=== PATIENT | male | born 1965 | race Caucasian/White ===

== ENCOUNTER 2018-01-16 12:15 | Day surgery (SDC) | payer OTHER, SELFPAY ==
[2018-01-16] VITALS (7 sets, daily range): BP systolic 93–113; BP diastolic 53–67; PULSE 53–66; RESP 12–18; TEMP 36.4–36.7; O2SAT 94–100; BMI 24.7
--- NOTE | 2018-01-16 12:36 | PM.HP.1 ---
History of Present Illness Date Patient Seen: 01/16/18 Chief complaint: [id number] Narrative: 52-year-old male who I had initially seen 12/11/2017 due to weight loss and family history of colon cancer and stomach cancer. Please refer to that office note for details. The patient is currently on a gluten free diet no evidence of GI bleeding. Review of Systems Review of Systems All systems reviewed & are unremarkable except as noted in HPI and below Exam Narrative Exam Narrative: General: Patient is well developed, not in apparent distress Cardiovascular: Regular rate and rhythm, no murmurs, rubs, or gallops; no evidence of edema; no palpable abdominal aortic aneurysm Gastrointestinal: Normoactive bowel sounds, soft, nontender, nondistended, no rebound tenderness, no hepatosplenomegaly, no evidence of hernia Assessment & Plan Plan: Assessment/Plan Narrative: 52-year-old male with a family history of GI cancer who was sent to our office for further evaluation of weight loss. He will undergo a upper endoscopy and screening colonoscopy. Regarding the procedure(s), the risks and potential complications, benefits, and alternatives (including not doing the procedure) were discussed with the patient. The risks include but are not limited to bleeding, infection, perforation which may require surgical intervention, missed lesions, and adverse reactions to sedative medicines. After a question and answer period, the patient agreed to proceed with the procedure(s) and gives informed consent.
[2018-01-16] MEDS: SODIUM CHLORIDE 0.9% 1,000 ML 70 ML IV (12:43)
--- NOTE | 2018-01-16 12:53 | SUR.PREOP ---
Patient resting in bed with at bedside. Denies complaints at this time. Call light within reach, bed locked and in low position.
--- NOTE | 2018-01-16 13:04 | P.OP.ENDO_ITS ---
Operative Date/Time/Diagnoses Date of procedure: 01/16/18 Procedure Notes Procedure in detail: Surgeon: Link Rojas MD Procedure: Esophagogastroduodenoscopy and colonoscopy Preoperative diagnosis: Weight loss, family history of gastrointestinal cancer Postoperative diagnosis: LA grade A reflux esophagitis, hiatal hernia, grade 1 internal hemorrhoids otherwise normal colonoscopy Medications: Cetacaine spray; conscious sedation using 10 mg IV of Midazolam ( EGD); 10 mg IV Midazolam (total for both procedures) Preanesthesia Assessment An H and P was performed/updated and the Px?s ASA class is 1. The procedure was discussed in detail with the patient. The potential risks and complications including infection, bleeding, missed lesions, perforation, need for surgery in case of perforation, prolonged hospital stay, and were explained. A brief question and answer period was allotted and once all questions were answered, informed consent was obtained. The patient was brought back to the procedure room and placed on standard monitoring. The patient?s vital signs were monitored continuously throughout the entire procedure. Prior to starting, a timeout was performed to confirm the patient?s identity, allergies, medications, and procedure. Procedure in detail The patient was placed in left lateral decubitus position and a bite block was inserted. The tip of the upper endoscope was placed into the mouth and advanced without difficulty under direct visualization into the esophagus. Esophagus: LA grade A reflux esophagitis at GE junction; otherwise normal esophagus Stomach: Small hiatal hernia otherwise normal stomach Duodenum: Normal After the upper endoscopy, preparations were made for the colonoscopy. Once adequate sedation was obtained a CAT was performed. The digital rectal examination did not reveal any palpable lesions. The tip of the colonoscope was placed in the anal canal and advanced without difficulty all the way to the cecum which was identified by the appendiceal orifice and the ileocecal valve. The terminal ileum was intubated to a distance of 10 cm from the ileocecal valve and the mucosa appeared normal. The colonoscope was brought back to the cecum and careful examination of all thomas of the colon was performed with irrigation of any residual stool. There is no evidence of mucosal abnormality or polyps throughout the entire colon. Retroflexion was performed in the rectum which revealed grade 1 internal hemorrhoids. The patient tolerated the procedure well and will be brought back to the recovery area to be discharged once criteria are met. The prep was judged to be good/excellent and adequate to identify polyps less than 5 mm. The withdrawal time was 8 min. The total physician intraservice time was 28 min. Complications There were no complications and estimated blood loss was zero. Recommendations Resume previous diet Anti-reflux measures Ranitidine 150 mg daily for the next month to heal esophagitis then can discontinue Repeat colonoscopy for colon cancer screening in 10 years Follow-up at our office on an as-needed basis or if with recurrent symptoms An emergency contact number was given to the patient for any complications related to the procedure
[2018-01-16] MEDS: TETRACAINE/BENZOCAINE/BUTAMBEN (CETACAINE) BOTTLE 1 SPRAY TOP (13:09)
--- NOTE | 2018-01-16 13:35 | PM.DS.1 ---
History of Present Illness Chief complaint: [id number] Narrative: 52-year-old male who I had initially seen 12/11/2017 due to weight loss and family history of colon cancer and stomach cancer. Please refer to that office note for details. The patient is currently on a gluten free diet no evidence of GI bleeding. Discharge Providers Primary care physician: Rd Dillon MD Discharge provider: Link Rojas MD Exam Vital Signs (past 8 hours): - 01/16/18 12:34 Temperature 97.6 F Pulse Rate 56 L Respiratory Rate 16 Blood Pressure 113/65 Pulse Oximetry 100 Oxygen Delivery Method Room Air Narrative Exam Narrative: General: Patient is well developed, not in apparent distress Cardiovascular: Regular rate and rhythm, no murmurs, rubs, or gallops; no evidence of edema; no palpable abdominal aortic aneurysm Gastrointestinal: Normoactive bowel sounds, soft, nontender, nondistended, no rebound tenderness, no hepatosplenomegaly, no evidence of hernia Discharge Plan Discharge Plan Patient Disposition: Home Discharge Med Rec/Prescriptions Discharge Orders: Discharge (Order); Ordered 01/16/18 Ordered By: Link Rojas Provider Discharge Instructions Diet: Diet as Tolerated Visit Report/Discharge Packet Stand Alone Forms: Surgery Discharge Discharge Data Primary Care Provider: Rd Dillon V Attending Provider: Link Rojas
[2018-01-16] MEDS: MIDAZOLAM 5 MG/5 ML VIAL IV (13:37)
== END 2018-01-16 14:32 | disposition home or self-care (01) ==
PROVIDERS: PCP Internal Medicine; Visit Provider Internal Medicine Gastroenterology
PROC: 0DJ08ZZ Inspection of Upper Intestinal Tract, Via Natural or Artificial Opening Endoscopic (ICD-10-PCS; CPT 43235; principal; 2018-01-16 13:00)
PROC: 0DJD8ZZ Inspection of Lower Intestinal Tract, Via Natural or Artificial Opening Endoscopic (ICD-10-PCS; CPT 45378; 2018-01-16 13:00)
DX: K21.0 Gastro-esophageal reflux disease with esophagitis (principal); Z80.0 Family history of malignant neoplasm of digestive organs; R63.4 Abnormal weight loss; K44.9 Diaphragmatic hernia without obstruction or gangrene; K64.0 First degree hemorrhoids
CPT/HCPCS: 43235; 45378; J2250

== ENCOUNTER → 2020-08-12 08:52 | Outpatient (CLI) | payer OTHER, SELFPAY ==
[2020-08-12] MEDS: COVID-19 VACC #1, MRNA(MOD) 100 MCG/0.5 ML VIAL IM (09:00)
== END ==
PROVIDERS: PCP Internal Medicine; Visit Provider Internal Medicine
DX: Z23 Encounter for immunization (principal)
CPT/HCPCS: 0011A; 91301

== ENCOUNTER → 2020-09-09 08:48 | Outpatient (CLI) | payer OTHER, SELFPAY ==
[2020-09-09] MEDS: COVID-19 VACC #2, MRNA(MOD) 100 MCG/0.5 ML VIAL IM (09:09)
== END ==
PROVIDERS: PCP Internal Medicine; Visit Provider Internal Medicine
DX: Z23 Encounter for immunization (principal)
CPT/HCPCS: 0012A; 91301

== ENCOUNTER → 2022-01-31 08:03 | Outpatient (CLI) | payer OTHER, SELFPAY ==
[2022-01-31 08:51] LABS: Hematocrit 43.2 % (41-53); Hemoglobin 14.9 g/dL (13.5-17.5); Mean Corpuscular HGB Conc 34.5 % (30-36); Mean Corpuscular Hemoglobin 32.1 PG (26-34); Mean Corpuscular Volume 93.1 fL (80-100); Platelet Count 154 X10^3/uL (150-400); Red Blood Cell Count 4.64 X10^6/uL (4.5-5.9); Red Cell Distribution Width 13.4 % (11.6-14.8)
[2022-01-31 09:33] LABS: Alanine Aminotransferase 28 IU/L (<50); Albumin 4.2 g/dL (3.5-5.0); Albumin Globulin Ratio 1.4 (1.0-2.8); Alkaline Phosphatase 73 U/L (38-126); Aspartate Aminotransferase 28 IU/L (17-59); BUN Creatinine Ratio 17.8 (6-22); Bilirubin Total 1.5 mg/dL (0.2-1.3); Blood Urea Nitrogen 18 mg/dL (9-20); Calcium 9.2 mg/dL (8.4-10.2); Carbon Dioxide 27 mmol/L (22-32); Chloride 103 mmol/L (98-107); Cholesterol 138 mg/dL (140-199); Estimated Glomerular Filt Rate > 60 mL/min (>60); Globulin 2.9 g/dL (1.7-4.1); Glucose 98 mg/dL (70-100); HDL Cholesterol 36 mg/dL (40-60); HEMOLYSIS < 15 (0-50); LDL Cholesterol Calculated 87 mg/dL (<100); Potassium 4.2 mmol/L (3.4-5.1); Sodium 141 mmol/L (137-145); Total Protein 7.1 g/dL (6.3-8.2); Triglycerides 77 mg/dL (35-150)
[2022-01-31 09:56] LABS: Prostate Specific Antigen Scrn 0.567 ng/mL (0.1-4.0); TSH w/ Reflex to FT4 2.62 uIU/mL (0.47-4.68)
== END ==
PROVIDERS: PCP Internal Medicine; Referring Provider Internal Medicine; Visit Provider Internal Medicine
DX: Z00.00 Encounter for general adult medical examination without abnormal findings (principal); Z12.5 Encounter for screening for malignant neoplasm of prostate; R19.7 Diarrhea, unspecified
CPT/HCPCS: 36415; 80053; 80061; 84443; 85027; G0103

== ENCOUNTER → 2024-06-06 | Outpatient (CLI) | payer OTHER, SELFPAY ==
--- NOTE | 2024-06-06 11:10 | DI.MRI.S_ITS ---
PROCEDURE: MR ANKLE LT WO CON INDICATIONS: history of dislocation TECHNIQUE: Noncontrast sagittal T1 spin echo and T2 fast spin echo with fat saturation, axial proton density fast spin echo and T2 fast spin echo with fat saturation, coronal T1 spin echo and T2 fast spin echo with fat saturation through the ankle/hindfoot. COMPARISON: [facility], CR, XR ANKLE LT MIN 3V, 06/06/2024, 11:13. FINDINGS: Image quality: Excellent. Bones and joints: No acute trabecular bone injury or fracture. No hindfoot coalitions. No osteochondral injuries of the talar dome. Multiple small nonedematous ossifications are seen adjacent to the medial malleolus that are likely the sequela of a remote prior injury. Chronic osseous irregularity is seen at the posterior medial aspect of the distal tibia. Full-thickness cartilage loss is seen within the medial portion of mortise joint with subchondral edema at the medial malleolus and adjacent medial talus. An ossified intra-articular loose body is seen along the anterior tibiotalar joint line, measuring 11 x 6 x 10 mm. Small joint effusion. Medial structures: Deep fibers of deltoid ligament appear heterogeneous, likely related to prior sprain. Spring ligament components appear to be intact. Small amount of fluid along the medial flexor tendon sheaths may be secondary to communication with the tibiotalar joint space versus tenosynovitis. The posterior tibial neurovascular bundle appears normal within the tarsal tunnel, without extrinsic mass effect. Lateral structures: Chronic likely complete tearing of the anterior talofibular ligament. Remote prior moderate grade sprain of the calcaneofibular ligament. Posterior talofibular ligament remains intact. Anterior and posterior tibiofibular ligaments are intact. Peroneus brevis and longus tendons are intact with normal alignment. There is normal fat signal in the sinus tarsi. Anterior structures: The tibialis anterior, extensor hallucis longus, and extensor digitorum longus tendons appear intact. Posterior and plantar structures: Mild Achilles tendinosis and peritenonitis. Mild thickening of the proximal plantar fascia is seen without associated edema. No focal fluid-filled defect. No abductor digiti minimi muscle atrophy to suggest Peck neuropathy. IMPRESSION: 1. 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 There is associated full-thickness cartilage loss at the medial mortise joint with subchondral edema. Small tibiotalar effusion with an 11 mm ossified intra-articular loose body. 2. Remote prior moderate grade sprain of the deltoid ligament. 3. [id number] tenosynovitis of the medial flexor tendons. Posttraumatic osseous irregularity is seen at the adjacent posterior medial tibia that could result in increased friction. No tendon tearing is seen. 4. Chronic complete tearing of the anterior talofibular ligament. Remote prior grade 2 sprain of the calcaneofibular ligament. 5. Mild Achilles tendinosis and peritenonitis. 6. Mild chronic proximal plantar fasciitis. Approved by: Ronan Blank M.D. on 06/08/2024 at 11:10
--- NOTE | 2024-06-06 11:10 | DI.RAD.S_ITS ---
PROCEDURE: XR ANKLE LT MIN 3V INDICATIONS: history of dislocation TECHNIQUE: 3 views of the ankle were acquired. COMPARISON: None. FINDINGS: Bones: Degenerative changes are noted at the medial tibiotalar and fibulotalar joints. No fractures or dislocations. Ankle mortise is normally aligned. No suspicious bony lesions. Soft tissues: No tibiotalar joint effusion. Achilles tendon appears normal. IMPRESSION: Degenerative change without evidence of acute osseous abnormality. Dictated by: Luis Ba M.D. on 06/07/2024 at 16:12 Approved by: Luis Ba M.D. on 06/07/2024 at 16:13
[2024-06-06 13:07] LABS: BUN Creatinine Ratio 18.3 (6-22); Blood Urea Nitrogen 19 mg/dL (9-20); Calcium 9.5 mg/dL (8.4-10.2); Carbon Dioxide 30 mmol/L (22-32); Chloride 102 mmol/L (98-107); Cholesterol 132 mg/dL (140-199); Estimated Glomerular Filt Rate > 60 mL/min (>60); Glucose 77 mg/dL (70-100); HDL Cholesterol 35 mg/dL (40-60); HEMOLYSIS < 15 (0-50); LDL Cholesterol Calculated 62 mg/dL (<100); Potassium 4.5 mmol/L (3.4-5.1); Sodium 139 mmol/L (137-145); Triglycerides 177 mg/dL (35-150)
== END ==
PROVIDERS: PCP Internal Medicine; Referring Provider Internal Medicine; Visit Provider Internal Medicine
DX: Z00.00 Encounter for general adult medical examination without abnormal findings (principal); S93.422A Sprain of deltoid ligament of left ankle, initial encounter; S93.412A Sprain of calcaneofibular ligament of left ankle, initial encounter; S93.492A Sprain of other ligament of left ankle, initial encounter; M76.62 Achilles tendinitis, left leg; S82.899A Other fracture of unspecified lower leg, initial encounter for closed fracture; Z12.5 Encounter for screening for malignant neoplasm of prostate; M72.2 Plantar fascial fibromatosis; M25.472 Effusion, left ankle
CPT/HCPCS: 73610; 73721; 80048; 80061; G0103